=== PATIENT | female | born 1950 | race Caucasian/White ===

== ENCOUNTER → 2017-11-08 | Outpatient (CLI) | payer MEDICARE, OTHER ==
--- NOTE | 2017-11-08 13:52 | Diagnostic Imaging Report ---
INDICATION: Routine screening. COMPARISON: 01/16/2016 and 12/04/2014. TECHNIQUE: 2D and 3D bilateral screening mammography was performed with CAD. FINDINGS: Both breasts are primarily involutional. Benign nodular densities in both breasts are stable. No new mass or malignant appearing microcalcifications are seen. The axillae are unremarkable. IMPRESSION: No mammographic features suspicious for malignancy are identified. ACR BI-RADS Category 2: Benign findings. Result letter will be mailed to the patient. Note: At least 10% of breast cancer is not imaged by mammography. Dictated by: Dictated on workstation # [id number]
== END ==
LOC: RAD 08:14
PROVIDERS: ATTEND Family Medicine
DX: Z12.31 Encounter for screening mammogram for malignant neoplasm of breast (principal)
CPT/HCPCS: 77067

== ENCOUNTER → 2019-11-08 | Outpatient (CLI) | payer MEDICARE, OTHER ==
--- NOTE | 2019-11-08 14:26 | Diagnostic Imaging Report ---
INDICATION: Routine screening. COMPARISON: 11/08/2017 and 01/16/2016. TECHNIQUE: 2D and 3D bilateral screening mammography was performed with CAD. FINDINGS: Scattered fibroglandular densities are identified bilaterally. Benign nodular densities are again noted bilaterally and appear stable. No new mass or malignant appearing microcalcifications are identified. The axillae are unremarkable. IMPRESSION: No mammographic features suspicious for malignancy are identified. ACR BI-RADS Category 2: Benign findings. Result letter will be mailed to the patient. Note: At least 10% of breast cancer is not imaged by mammography. Dictated by: Dictated on workstation # [id number]
== END ==
LOC: RAD 09:15
PROVIDERS: ATTEND Family Medicine
DX: Z12.31 Encounter for screening mammogram for malignant neoplasm of breast (principal)
CPT/HCPCS: 77063; 77067

== ENCOUNTER → 2021-02-04 | Outpatient (CLI) | payer SELFPAY ==
--- NOTE | 2021-02-04 10:00 | Diagnostic Imaging Report ---
EXAMINATION: CT calcium scoring without contrast. TECHNIQUE: Multiple contiguous axial images were obtained through the chest without the use of intravenous contrast for purposes of calcium scoring. All CT scans use one or more of the following dose optimizing techniques: automated exposure control, MA and/or KvP adjustment based on patient size and exam type or iterative reconstruction. HISTORY: MIXED HYPERLIPIDEMIA COMPARISON: None available. FINDINGS: The calculated coronary artery calcium score is 0.. There is no edema or pneumonia. No pleural effusion. No pneumothorax. There is an 11 x 15 mm nodule in right lower lobe Heart size is normal. No pericardial effusion. Aorta is normal in caliber. There is no axillary or supraclavicular lymphadenopathy. There is no mediastinal lymphadenopathy. Limited views of the upper abdomen are unremarkable. There are no suspicious osseus lesions. IMPRESSION: 1. Calculated coronary artery calcium score of 0. 2. Right lower lobe 11 x 15 mm pulmonary nodule. PET/CT or three-month followup is recommended. Message left at 9:48 a.m. by cvb. Faxed to Dr. Hunt at 9:58 a.m. by cvb. Dictated by: Dictated on workstation # [id number]
== END ==
LOC: RAD FS 09:00
PROVIDERS: ATTEND Family Medicine
DX: R91.1 Solitary pulmonary nodule (principal); E78.2 Mixed hyperlipidemia
CPT/HCPCS: 75571

== ENCOUNTER → 2021-02-18 | Outpatient (CLI) | payer MEDICARE ==
--- NOTE | 2021-02-18 16:47 | Diagnostic Imaging Report ---
INDICATION: Lung nodule. EXAMINATION: Serum blood glucose level at the time of injection is 102 mg/dL. Patient was administered 13.2 mCi F-18 FDG intravenously in the right antecubital location and PET imaging was performed from the top of skull to mid thighs. Noncontrast CT was also performed for attenuation correction and anatomic correlation. COMPARISON: Correlation is made with the recent CT cardiac calcium score study from 01/27/2021. There is symmetric activity throughout the brain. Soft tissues of the neck are unremarkable. No mediastinal or hilar hypermetabolism is identified. The lesion in the posterior right lower lobe does not demonstrate FDG avidity. No pulmonary parenchymal areas of hypermetabolism are identified. There is physiologic activity throughout the GI and tracts of the abdomen and pelvis. No suspicious hypermetabolism is identified. IMPRESSION: Unremarkable PET/CT study. In particular, the nodule in the right lower lobe does not show FDG avidity. Continued CT chest follow-up in 6-12 months is recommended to show continued stability. Dictated by: Dictated on workstation # [id number]
== END ==
LOC: RAD 09:06
PROVIDERS: ATTEND Family Medicine
DX: R91.1 Solitary pulmonary nodule (principal)
CPT/HCPCS: 78815; A9552

== ENCOUNTER → 2021-08-05 | Outpatient (CLI) | payer MEDICARE ==
--- NOTE | 2021-08-05 13:24 | Diagnostic Imaging Report ---
INDICATION: Routine screening. COMPARISON: 11/08/2019 and 11/08/2017. TECHNIQUE: 2D and 3D bilateral screening mammography was performed with CAD. FINDINGS: Scattered fibroglandular densities are identified bilaterally. Benign nodules in both breasts appear stable. No definite spiculated mass or malignant-appearing microcalcifications are seen. There are benign calcifications present. The axillae are unremarkable. IMPRESSION: No mammographic features suspicious for malignancy are identified. ACR BI-RADS Category 2: Benign findings. Result letter will be mailed to the patient. Note: At least 10% of breast cancer is not imaged by mammography. Dictated by: Dictated on workstation # [id number]
== END ==
LOC: RAD 11:15
PROVIDERS: ATTEND Family Medicine
DX: Z12.31 Encounter for screening mammogram for malignant neoplasm of breast (principal)
CPT/HCPCS: 77063; 77067

== ENCOUNTER → 2021-08-06 | Outpatient (CLI) | payer MEDICARE, OTHER ==
[~2021-08-06] MED LIST: CATHETER FLUSH 10 ML SYR IV PRN; IOHEXOL 300 MG/ML 100 ML (OMNIPAQUE 300) VIAL IV ONE; NS 100 ML (IVPB) BAG IV ONE
--- NOTE | 2021-08-06 11:27 | Diagnostic Imaging Report ---
CT CHEST W TECHNIQUE: Multiple contiguous axial images were obtained through the chest with the use of intravenous contrast. All CT scans use one or more of the following dose optimizing techniques: automated exposure control, MA and/or KvP adjustment based on a patient size and exam type, or iterative reconstruction. INDICATION: Followup lung nodule. COMPARISON: CT calcium score of 02/04/2021 and PET/CT of 02/18/2021 FINDINGS: Lungs and airway: No abnormality of the trachea. No pneumonia or edema. The multilobulated nodule in the right lower lobe remains unchanged in size measuring 11 x 15 mm. No new pulmonary nodules have developed. Pleura: No pleural effusion or pneumothorax. Heart and mediastinum: Thyroid is normal. No supraclavicular or axillary lymphadenopathy. Heart is normal in size. No mediastinal or hilar lymphadenopathy. Normal caliber thoracic aorta. Upper abdomen: Cholecystectomy. No acute abnormality upper abdomen. Musculoskeletal: No worrisome focal osseous lesions. IMPRESSION: 1. Stable polylobulated right lower lobe 11 x 15 mm nodule. This had no metabolic activity on prior PET/CT. This is most likely benign in nature, though given size, a followup CT chest without contrast in 12 months is advised to exclude the possibility of a low-grade primary lung cancer. 2. No lymphadenopathy or new pulmonary nodules. Dictated by: Dictated on workstation # [id number]
== END ==
LOC: RAD FS 07:57
PROVIDERS: ATTEND Family Medicine
DX: R91.1 Solitary pulmonary nodule (principal)
CPT/HCPCS: 71260; Q9967

== ENCOUNTER → 2021-09-09 | Outpatient (CLI) | payer MEDICARE, OTHER ==
--- NOTE | 2021-09-09 11:36 | Diagnostic Imaging Report ---
History: Right hand and thumb pain TECHNIQUE: 3 views of the right hand COMPARISON: None FINDINGS: No acute fracture or dislocation is seen in the right hand. There is advanced degenerative change at the 1st carpal metacarpal joint. There is moderate degenerative change in the 2nd distal interphalangeal joint. No cortical erosions are seen. Alignment appears normal. IMPRESSION:. Severe degenerative changes in the 1st carpometacarpal joint of the right hand. Dictated by: Dictated on workstation # [id number]
== END ==
LOC: RAD FS 09:03
PROVIDERS: ATTEND Nurse Practitioner Family
DX: M18.11 Unilateral primary osteoarthritis of first carpometacarpal joint, right hand (principal)
CPT/HCPCS: 73130